=== PATIENT | male | born 1965 | race Two or more races ===

== ENCOUNTER 2021-01-07 10:30 | Inpatient (IN) | payer MEDICAID, OTHER ==
[~2021-01-07] VITALS: Ht 180.3 cm; Wt 110.0 kg
[2021-01-07] MEDS ORDERED: CALCIUM GLUC 4.65meq/50ml D5AE 50 ML IV ONE ×2 (10:54→11:15)
[2021-01-07] MEDS ORDERED: dilTIAZem 25 MG/5 ML VIAL IV ONE ×2 (10:59→11:15)
[2021-01-07] MEDS ORDERED: SODIUM CHLORIDE 0.9% 1,000 ML IV ONE (11:00)
[2021-01-07] MEDS ORDERED: ASPirin 81 mg TAB PO ONE (11:00)
[2021-01-07] MEDS ORDERED: SODIUM CHLORIDE 0.9% 250 ML IV ONE (11:15)
[2021-01-07 11:19] LABS: Basophils # (auto) 0 10 ^3/uL (0-0.2); Basophils % (auto) 0.3 % (0.0-2.0); Eosinophils # (auto) 0 10 ^3/uL (0-0.8); Lymphocytes # (auto) 0.8 10 ^3/uL (0.4-5.4); Monocytes # (auto) 1.5 10 ^3/uL (0-1.3); Red Cell Distribution Width 13.8 % (11.8-14.3); White Blood Cell 10.5 10^3/uL (4.4-10.8)
[2021-01-07 11:22] LABS: Eosinophils % (auto) 0.1 % (0.0-7.0); Hematocrit 37.3 % (41.0-53.0); Lymphocytes % (auto) 7.4 % (10.0-50.0); Mean Corpuscular Hemoglobin 35.4 pg (28.0-32.0); Mean Corpuscular Hgb Conc. 34.8 g/dL (32.0-36.0); Mean Corpuscular Volume 101.9 fL (80.0-100.0); Monocytes % (auto) 14.6 % (0.0-12.0); Neutrophils # (auto) 8.1 10 ^3/uL (1.6-8.6); Neutrophils % (auto) 77.6 % (37.0-80.0); Nucleated Red Blood Cells % 1.5 %; Platelet Count (auto) 79 10^3/uL (140-450); Red Blood Cells 3.66 10^6/uL (4.5-5.90)
[2021-01-07 11:32] LABS: Albumin 3.1 g/dL (3.4-5.0); Magnesium 2.1 mg/dL (1.6-2.6); Potassium 3.4 mmol/L (3.5-5.1)
[2021-01-07 11:37] LABS: Bilirubin, Total 7.5 mg/dL (0.2-1.0); Total Protein 8.3 g/dL (6.4-8.2)
[2021-01-07] MEDS ORDERED: FUROSEMIDE 40 MG/4 ML VIAL IV ONE (11:45)
[2021-01-07 11:50] LABS: INR 1.59 (0.9-1.15); Partial Thromboplastin Time 30.3 sec (23.0-31.2)
[2021-01-07] MEDS ORDERED: AMIODARONE HCL 150 MG in D5W 5% 100 ML IV ONE ×2 (12:30→14:30)
[2021-01-07] MEDS ORDERED: AMIODARONE 450mg/250ml AE 250 ML IV SCH (12:30)
[2021-01-07 12:50] LABS: Urine Amorphous Crystal MOD /hpf (None Seen); Urine Bacteria FEW /hpf (None Seen); Urine Blood 2+ /uL (Negative); Urine Hyaline Cast FEW /lpf (0 - 2); Urine Mucus FEW (None Seen); Urine Specific Gravity 1.026 (1.001-1.035); Urine WBC 5 /hpf (0 - 3)
[2021-01-07] MEDS ORDERED: IOHEXOL 350 MG/ML 100ML IJ ONE (14:51)
[2021-01-07 17:08] LABS: Alcohol, Urine < 3.0 mg/dL (0-10); Amphetamine Screen, Urine NEGATIVE (NEGATIVE); Barbiturate Scree,Urine NEGATIVE (NEGATIVE); Benzodiazephine Screen, Urine NEGATIVE (NEGATIVE); Cannabinoid Screen, Urine NEGATIVE (NEGATIVE); Cocaine Screen, Urine NEGATIVE (NEGATIVE); Opiate Scree,Urine NEGATIVE (NEGATIVE); Phencyclidine Screen, Urine NEGATIVE (NEGATIVE)
[2021-01-07] MEDS ORDERED: LORazepam 2MG/ML-1ML VIAL IV ONE (17:15)
[2021-01-07] MEDS ORDERED: cefTRIAXone 1GM/50ML D5W 50 ML IV ONE (17:15)
[2021-01-07] MEDS ORDERED: LORazepam 2MG/ML-1ML VIAL IV PRN (18:15)
[2021-01-07] MEDS ORDERED: THIAMINE 100mg/ml INJ (200mg/2ml VIAL) IV ONE (18:15)
[2021-01-07] MEDS ORDERED: NITROGLYCERIN 0.4 MG SL TAB SL PRN (18:15)
[2021-01-07] MEDS ORDERED: MORPHINE SULF INJ 2 MG/ML SYRINGE 1ML IV PRN (18:15)
[2021-01-07] MEDS ORDERED: METOPROLOL TARTRATE 1MG/1ML-5ML VIAL IV ONE (18:15)
[2021-01-07] MEDS: AMIODARONE 450mg/250ml AE 250 ML IV SCH (18:38)
[2021-01-07] MEDS ORDERED: SUCCINYLCHOLINE CHLORIDE 20 MG/ML 10ML VIAL IV ONE (20:33)
[2021-01-07] MEDS ORDERED: ETOMIDATE (2MG/ML) 20ML VIAL IV ONE (20:33)
[2021-01-07 20:44] VITALS: BP 114/81
[2021-01-07] MEDS: MIDAZOLAM DRIP 50 mg/50mL 50 ML IV SCH (21:03)
[2021-01-07] MEDS ORDERED: fentaNYL Drip 2500mCg/250mlNS 250 ML IV ONE (21:18)
[2021-01-07] MEDS ORDERED: ALBUMIN 5% 250 ML IV ONE ×2 (21:45→22:00)
[2021-01-07] MEDS: fentaNYL Drip 2500mCg/250mlNS 250 ML IV SCH (21:50)
[2021-01-07] MEDS ORDERED: NOREPINEPHRINE 8 MG/250ML KIT 250 ML IV SCH (22:00)
[2021-01-07] MEDS ORDERED: SODIUM CHLORIDE 0.9% 500 ML IV ONE (22:00)
[2021-01-07] MEDS ORDERED: levoFLOXacin 500MG 100 ML IV ONE (23:00)
[2021-01-07] MEDS ORDERED: AMIODARONE HCL 75 MG in D5W 5% 100 ML IV ONE (23:15)
[2021-01-07] MEDS ORDERED: AMIODARONE HCL (50 MG/ ML) 3 ML VIAL IV ONE (23:17)
[2021-01-07 23:36] LABS: Hemoglobin 10.8 g/dL (13.5-17.5)
[2021-01-07 23:38] LABS: Hematocrit 31.1 % (41.0-53.0)
[2021-01-07] MEDS ORDERED: LACTULOSE 20Gm/30ML SOLN ONE ×2 (23:43→23:57)
[2021-01-07 23:47] VITALS: BP 81/47
[2021-01-07 23:56] LABS: Lactic Acid w/Reflex 2.5 mmol/L (0.4-2.0)
[2021-01-08] VITALS (90 sets, daily range): BP systolic 83–134; BP diastolic 41–84
[2021-01-08] MEDS: LACTULOSE 10g/15ml SOLN PR SCH ×3 (00:05→07:30)
[2021-01-08] MEDS ORDERED: DIGOXIN (250MCG/ML) 2 ML AMPULE IV ONE ×4 (00:45→17:00)
[2021-01-08 02:40] LABS: Basophils # (auto) 0 10 ^3/uL (0-0.2); Basophils % (auto) 0.1 % (0.0-2.0); Eosinophils # (auto) 0 10 ^3/uL (0-0.8); Eosinophils % (auto) 0.3 % (0.0-7.0); Hematocrit 31.9 % (41.0-53.0); Lymphocytes # (auto) 1.1 10 ^3/uL (0.4-5.4); Lymphocytes % (auto) 10.5 % (10.0-50.0); Mean Corpuscular Hemoglobin 35.1 pg (28.0-32.0); Mean Corpuscular Hgb Conc. 34.5 g/dL (32.0-36.0); Mean Corpuscular Volume 101.8 fL (80.0-100.0); Monocytes # (auto) 1.8 10 ^3/uL (0-1.3); Neutrophils # (auto) 7.2 10 ^3/uL (1.6-8.6); Nucleated Red Blood Cells % 1.8 %; Platelet Count (auto) 80 10^3/uL (140-450); Red Blood Cells 3.13 10^6/uL (4.5-5.90); Red Cell Distribution Width 13.7 % (11.8-14.3); White Blood Cell 10.1 10^3/uL (4.4-10.8)
[2021-01-08 02:43] LABS: INR 1.93 (0.9-1.15); Partial Thromboplastin Time 33.1 sec (23.0-31.2)
[2021-01-08 02:53] LABS: Albumin 2.9 g/dL (3.4-5.0); BUN/Creatinine Ratio 21.5; Magnesium 2.1 mg/dL (1.6-2.6); Potassium 3.2 mmol/L (3.5-5.1)
[2021-01-08 02:55] LABS: Bilirubin, Total 7.6 mg/dL (0.2-1.0); Total Protein 7.2 g/dL (6.4-8.2)
[2021-01-08] MEDS ORDERED: PROPOFOL 100 ML IV ONE (02:57)
[2021-01-08] MEDS: MIDAZOLAM DRIP 50 mg/50mL 50 ML IV SCH ×6 (03:13→21:08)
[2021-01-08] MEDS ORDERED: PROPOFOL 100 ML IV SCH ×2 (03:15)
[2021-01-08 04:03] LABS: Cholesterol 127 mg/dL (< 200)
[2021-01-08 04:05] LABS: HDL Cholesterol 15 mg/dL (40-59); LDL Cholesterol 105 mg/dL (< 100); Triglycerides 117 mg/dL (< 150)
[2021-01-08 06:42] LABS: BUN/Creatinine Ratio 25.7; Calcium 7.1 mg/dL (8.5-10.1); Magnesium 2.1 mg/dL (1.6-2.6); Potassium 3.1 mmol/L (3.5-5.1)
[2021-01-08 06:45] LABS: Bilirubin, Total 7.2 mg/dL (0.2-1.0); Total Protein 7.2 g/dL (6.4-8.2)
[2021-01-08] MEDS: LACTULOSE 20Gm/30ML SOLN NG SCH ×4 (10:24→22:02)
[2021-01-08] MEDS: MULTIPLE VITAMIN TAB PO SCH (10:24)
[2021-01-08] MEDS: THIAMINE 100mg/ml INJ (200mg/2ml VIAL) IV SCH (10:24)
[2021-01-08] MEDS: fentaNYL Drip 2500mCg/250mlNS 250 ML IV SCH ×2 (10:33→22:03)
[2021-01-08] MEDS: FUROSEMIDE 40 MG/4 ML VIAL IV SCH (13:35)
[2021-01-08] MEDS: DIGOXIN (250MCG/ML) 2 ML AMPULE IV SCH (13:36)
[2021-01-08] MEDS: POTASSIUM CHL 20MEQ/100ML 100 ML IV SCH ×3 (13:36→17:40)
[2021-01-08] MEDS: AMIODARONE 450mg/250ml AE 250 ML IV SCH (15:44)
[2021-01-08] MEDS: PHENYLEPHRINE IV 250 ML IV SCH ×2 (17:58→21:20)
[2021-01-08] MEDS: levoFLOXacin 500MG 100 ML IV SCH (21:08)
[2021-01-09] VITALS (101 sets, daily range): BP systolic 79–117; BP diastolic 39–85
[2021-01-09] MEDS: PHENYLEPHRINE IV 250 ML IV SCH ×10 (00:58→23:00)
[2021-01-09] MEDS: MIDAZOLAM DRIP 50 mg/50mL 50 ML IV SCH ×6 (00:59→22:00)
[2021-01-09] MEDS: LACTULOSE 20Gm/30ML SOLN NG SCH ×6 (02:20→22:00)
[2021-01-09] MEDS: AMIODARONE 450mg/250ml AE 250 ML IV SCH ×2 (04:00→19:24)
[2021-01-09 07:14] LABS: Basophils # (auto) 0 10 ^3/uL (0-0.2); Eosinophils # (auto) 0.3 10 ^3/uL (0-0.8); Hemoglobin 11.2 g/dL (13.5-17.5); Lymphocytes # (auto) 0.8 10 ^3/uL (0.4-5.4); Platelet Count (auto) 106 10^3/uL (140-450)
[2021-01-09 07:17] LABS: Basophils % (auto) 0.1 % (0.0-2.0); Eosinophils % (auto) 2.6 % (0.0-7.0); Hematocrit 32.7 % (41.0-53.0); Lymphocytes % (auto) 7.4 % (10.0-50.0); Mean Corpuscular Hemoglobin 35.6 pg (28.0-32.0); Mean Corpuscular Hgb Conc. 34.4 g/dL (32.0-36.0); Mean Corpuscular Volume 103.4 fL (80.0-100.0); Monocytes # (auto) 1.7 10 ^3/uL (0-1.3); Monocytes % (auto) 15.8 % (0.0-12.0); Neutrophils # (auto) 8.1 10 ^3/uL (1.6-8.6); Neutrophils % (auto) 74.1 % (37.0-80.0); Nucleated Red Blood Cells % 0.4 %; Red Blood Cells 3.16 10^6/uL (4.5-5.90); Red Cell Distribution Width 14.2 % (11.8-14.3)
[2021-01-09 07:25] LABS: INR 1.94 (0.9-1.15)
[2021-01-09 07:41] LABS: Potassium 3.4 mmol/L (3.5-5.1)
[2021-01-09 07:56] LABS: Albumin 2.5 g/dL (3.4-5.0); BUN/Creatinine Ratio 29.8; Calcium 6.9 mg/dL (8.5-10.1); Total Protein 6.4 g/dL (6.4-8.2)
[2021-01-09] MEDS: MULTIPLE VITAMIN TAB PO SCH (10:00)
[2021-01-09] MEDS: fentaNYL Drip 2500mCg/250mlNS 250 ML IV SCH ×2 (10:42→22:00)
[2021-01-09] MEDS: FUROSEMIDE 40 MG/4 ML VIAL IV SCH (11:19)
[2021-01-09] MEDS: DIGOXIN (250MCG/ML) 2 ML AMPULE IV SCH (11:19)
[2021-01-09] MEDS: THIAMINE 100mg/ml INJ (200mg/2ml VIAL) IV SCH (11:20)
[2021-01-09] MEDS: POTASSIUM CHL 20MEQ/100ML 100 ML IV SCH ×2 (14:25→16:00)
[2021-01-09] MEDS: VASOPRESSIN 50 UNITS in D5W 5% 247.5 ML IV SCH (16:28)
[2021-01-09] MEDS: levoFLOXacin 500MG 100 ML IV SCH (21:00)
[2021-01-10] VITALS (72 sets, daily range): BP systolic 78–112; BP diastolic 21–79
[2021-01-10] MEDS: MIDAZOLAM DRIP 50 mg/50mL 50 ML IV SCH ×5 (01:15→14:09)
[2021-01-10] MEDS: LACTULOSE 20Gm/30ML SOLN NG SCH ×4 (02:00→14:00)
[2021-01-10] MEDS: PHENYLEPHRINE IV 250 ML IV SCH ×8 (02:30→15:45)
[2021-01-10 06:43] LABS: Eosinophils # (auto) 0.1 10 ^3/uL (0-0.8); Hemoglobin 12.3 g/dL (13.5-17.5); Lymphocytes # (auto) 0.8 10 ^3/uL (0.4-5.4); Nucleated Red Blood Cells % 0.3 %; Red Blood Cells 3.47 10^6/uL (4.5-5.90)
[2021-01-10 06:45] LABS: Basophils # (auto) 0 10 ^3/uL (0-0.2); Basophils % (auto) 0.2 % (0.0-2.0); Eosinophils % (auto) 0.4 % (0.0-7.0); Hematocrit 36.3 % (41.0-53.0); Lymphocytes % (auto) 4.8 % (10.0-50.0); Mean Corpuscular Hemoglobin 35.4 pg (28.0-32.0); Mean Corpuscular Hgb Conc. 33.9 g/dL (32.0-36.0); Mean Corpuscular Volume 104.6 fL (80.0-100.0); Monocytes # (auto) 2.3 10 ^3/uL (0-1.3); Monocytes % (auto) 14.3 % (0.0-12.0); Neutrophils # (auto) 13.1 10 ^3/uL (1.6-8.6); Neutrophils % (auto) 80.3 % (37.0-80.0); Platelet Count (auto) 160 10^3/uL (140-450); Red Cell Distribution Width 14.5 % (11.8-14.3); White Blood Cell 16.3 10^3/uL (4.4-10.8)
[2021-01-10 07:07] LABS: Potassium 4.1 mmol/L (3.5-5.1)
[2021-01-10 07:10] LABS: BUN/Creatinine Ratio 28.9; Calcium 6.8 mg/dL (8.5-10.1)
[2021-01-10] MEDS: AMIODARONE 450mg/250ml AE 250 ML IV SCH (08:22)
[2021-01-10] MEDS: MULTIPLE VITAMIN TAB PO SCH (10:00)
[2021-01-10] MEDS: fentaNYL Drip 2500mCg/250mlNS 250 ML IV SCH (10:07)
[2021-01-10] MEDS: DIGOXIN (250MCG/ML) 2 ML AMPULE IV SCH (10:22)
[2021-01-10] MEDS: THIAMINE 100mg/ml INJ (200mg/2ml VIAL) IV SCH (10:22)
[2021-01-10] MEDS: FUROSEMIDE 40 MG/4 ML VIAL IV SCH (10:30)
[2021-01-10] MEDS: VASOPRESSIN 50 UNITS in D5W 5% 247.5 ML IV SCH (11:59)
== END 2021-01-10 17:35 | disposition short-term general hospital (02) | DRG 720 ==
LOC: ER 10:30 → TELE 18:07 → ICU WEST 23:06
PROVIDERS: ADMIT Nurse Practitioner Acute Care; ATTEND Internal Medicine Pulmonary Disease
PROC: 02HV33Z Insertion of Infusion Device into Superior Vena Cava, Percutaneous Approach (ICD-10-PCS; 2021-01-07)
PROC: B548ZZA Ultrasonography of Superior Vena Cava, Guidance (ICD-10-PCS; 2021-01-07)
PROC: 5A1945Z Respiratory Ventilation, 24-96 Consecutive Hours (ICD-10-PCS; principal; 2021-01-08)
PROC: 0BH17EZ Insertion of Endotracheal Airway into Trachea, Via Natural or Artificial Opening (ICD-10-PCS; 2021-01-08)
DX: A41.9 Sepsis, unspecified organism (principal); R65.21 Severe sepsis with septic shock; J96.01 Acute respiratory failure with hypoxia; I50.23 Acute on chronic systolic (congestive) heart failure; K70.31 Alcoholic cirrhosis of liver with ascites; K85.20 Alcohol induced acute pancreatitis without necrosis or infection; D69.6 Thrombocytopenia, unspecified; I42.6 Alcoholic cardiomyopathy; E44.1 Mild protein-calorie malnutrition; E87.6 Hypokalemia; K81.9 Cholecystitis, unspecified; D53.9 Nutritional anemia, unspecified; E87.1 Hypo-osmolality and hyponatremia; I48.20 Chronic atrial fibrillation, unspecified; N17.9 Acute kidney failure, unspecified; Z20.822 Contact with and (suspected) exposure to COVID-19; Z68.33 Body mass index [BMI] 33.0-33.9, adult; F10.20 Alcohol dependence, uncomplicated; F41.9 Anxiety disorder, unspecified; K55.9 Vascular disorder of intestine, unspecified; K56.7 Ileus, unspecified; K63.89 Other specified diseases of intestine; K76.0 Fatty (change of) liver, not elsewhere classified; Z79.01 Long term (current) use of anticoagulants; K72.90 Hepatic failure, unspecified without coma; J91.8 Pleural effusion in other conditions classified elsewhere
CPT/HCPCS: 36415; 36556; 36600; 51702; 71045; 71275; 74176; 76700; 76705; 80048; 80053; 80061; 80307; 81001; 82140; 82805; 83605; 83690; 83735; 83880; 84443; 84484; 85014; 85018; 85025; 85379; 85610; 85730; 86850; 86900; 86901; 87040; 87070; 87081; 87205; 87426; 93005; 93306; 93970; 94002; 94003; 96365; 96366; 96367; 96368; 96375; 99291; G0378; J0330; J0610; J0696; J1956; J2250; J2704; J3480; J7060